=== PATIENT | male | born 1975 | race Caucasian/White ===

== ENCOUNTER 2019-01-08 14:44 | Emergency (ER) | payer BC ==
[~2019-01-08] VITALS: Ht 190.5 cm; Wt 95.0 kg
[2019-01-08] MEDS ORDERED: HYDR-4383 PO (15:36)
[2019-01-08] MEDS ORDERED: AMOX-422 PO (15:36)
[2019-01-08 15:52] VITALS: BP 134/74
== END 2019-01-08 15:52 | disposition home or self-care (01) ==
LOC: ER 14:45
DX: K04.7 Periapical abscess without sinus (principal); Z79.2 Long term (current) use of antibiotics; Z79.899 Other long term (current) drug therapy
CPT/HCPCS: 99283